=== PATIENT | male | born 1990 | race Caucasian/White ===

== ENCOUNTER 2021-01-09 17:04 | Emergency (ER) | payer MEDICAID ==
[~2021-01-09] VITALS: Ht 185.4 cm; Wt 99.8 kg
[2021-01-09 17:58] VITALS: BP 139/103
[2021-01-09] MEDS ORDERED: HYDROcodone/APAP 5/325 MG 1 TAB TAB PO ONE (18:25)
[2021-01-09 20:14] LABS: BASOPHILS % (AUTO) 0.3 % (0.0-2.0); EOSINOPHILS # (AUTO) 0.1 K/uL (0-0.4); EOSINOPHILS % (AUTO) 1.5 % (0.0-4.0); HEMATOCRIT 46.2 % (36-52); HEMOGLOBIN 15.3 g/dL (12.0-18.0); LYMPHOCYTES # (AUTO) 1.2 K/uL (2.0-11.5); MEAN CORPUSCULAR HEMOGLOBIN 30 pg (27-31); MEAN CORPUSCULAR HGB CONC 33 g/dL (33-37); MEAN CORPUSCULAR VOLUME 90.1 fL (80-94); MONOCYTES # (AUTO) 0.8 K/uL (0.8-1.0); MONOCYTES % (AUTO) 11.2 % (1.7-9.3); NEUTROPHILS # (AUTO) 4.8 K/uL (1.8-7.7); PLATELET COUNT (AUTO) 260 K/uL (140-450); RED BLOOD CELL COUNT(AUTO) 5.13 MIL/uL (4.20-6.10); RED CELL DISTRIBUTION WIDTH 14.6 % (11.6-13.7); WHITE BLOOD COUNT (AUTO) 6.9 K/uL (4.8-10.8)
[2021-01-09 20:34] LABS: ALBUMIN 3.9 g/dL (3.4-5.0); ANION GAP 13.5 (8-16); CARBON DIOXIDE 29.6 mmol/L (21-32); CREATININE 1.1 mg/dL (0.6-1.3); POTASSIUM 4.1 mmol/L (3.5-5.1); TOTAL BILIRUBIN 0.5 mg/dL (0.0-1.0)
[2021-01-09] MEDS ORDERED: ACYC400T14 PO (21:32)
[2021-01-09] MEDS ORDERED: CEPH-588 PO (21:55)
[2021-01-09] MEDS ORDERED: HYDROcodone/APAP 5/325 MG 1 TAB TAB ONE (22:03)
[2021-01-09 22:08] VITALS: BP 128/98
== END 2021-01-09 22:08 | disposition home or self-care (01) ==
LOC: MED 17:04
DX: L03.115 Cellulitis of right lower limb (principal); L03.116 Cellulitis of left lower limb; R10.31 Right lower quadrant pain
CPT/HCPCS: 36415; 76700; 80053; 81002; 83690; 83880; 85025; 99284; Q0092